=== PATIENT | female | born 1955 | race Caucasian/White ===

== ENCOUNTER → 2020-12-22 | Outpatient (CLI) | payer BC ==
--- NOTE | 2020-12-22 14:02 | REP ---
INDICATION: S/P SURGERY, SWELLING/TENDERNESS, R/O DVT. COMPARISON: None TECHNIQUE: Multiple ultrasonographic images of the deep venous structures of the right thigh were obtained from the level of the common femoral vein to the popliteal vein in the longitudinal and transverse scan planes along with Doppler interrogation and color flow Doppler imaging. Exam into the proximal calf also performed. Comparison exam of the right common femoral vein also made. FINDINGS: There is no abnormal echogenic material seen within any of the visualized deep venous structures that would suggest acute thrombosis. Coaptation is unremarkable throughout. Doppler interrogation shows an expected response to respiratory variability and augmentation. The color flow Doppler images show what appears to be a normal vascular pattern throughout. IMPRESSION: There is no ultrasonographic evidence of deep venous thrombosis involving any of the visualized deep venous structures of the right thigh as described above. The peroneal vein in its mid to distal course is not seen due to edema. The left posterior tibial vein is compressible throughout the calf. Accredited by the [employer] in Vascular Peripheral Ultrasound. <Electronically signed by Simón Felix > 12/22/20 2751
== END ==
LOC: M RAD 12:39
PROVIDERS: ATTEND Orthopaedic Surgery
DX: M79.669 Pain in unspecified lower leg (principal)

== ENCOUNTER → 2022-06-21 | Outpatient (CLI) | payer BC ==
[2022-06-21 13:10] LABS: ALBUMIN 3.7 G/DL (3.2-5.2); ALKALINE PHOSPHATASE 84 U/L (46-116); ALT/SGPT 34 U/L (7.0-40); AST/SGOT 26 U/L (<34); BILIRUBIN,TOTAL 0.5 MG/DL (0.3-1.2); BLOOD UREA NITROGEN 20 MG/DL (9-23); CALCIUM LEVEL 9.2 MG/DL (8.3-10.6); CARBON DIOXIDE LEVEL 31 MMOL/L (20-31); CHLORIDE LEVEL 104 MMOL/L (98-107); CHOLESTEROL LEVEL 182 MG/DL (<200); CREATININE FOR GFR 0.81 MG/DL (0.55-1.30); GLOMERULAR FILTRATION RATE > 60.0 (>45); GLUCOSE, FASTING 88 MG/DL (74-106); HDL CHOLESTEROL 67.2 MG/DL (>40); LDL CHOLESTEROL 95.2 MG/DL (<100); NON-HDL-C 115 MG/DL; POTASSIUM SERUM 4.4 MMOL/L (3.5-5.1); SODIUM LEVEL 140 MMOL/L (136-145); TOTAL PROTEIN 6.6 G/DL (5.7-8.2); TRIGLYCERIDES LEVEL 98 MG/DL (<150)
[2022-06-21 13:21] LABS: BASO % 0.5 % (0.0-1.0); EOS # 0.1 10^3/uL (0.0-0.5); EOS % 1.7 % (0.0-3.0); HEMATOCRIT 46.2 % (36.0-47.0); HEMOGLOBIN 14.4 g/dl (12.0-15.5); LYMPH # 1.5 10^3/uL (1.5-5.0); LYMPH % 23.1 % (24.0-44.0); MEAN CORPUSCULAR HEMOGLOBIN 28.2 pg (27.0-33.0); MEAN CORPUSCULAR HGB CONC 31.2 g/dl (32.0-36.5); MEAN CORPUSCULAR VOLUME 90.4 fl (80.0-96.0); MONO # 0.5 10^3/uL (0.0-0.8); NEUTROPHILS # 4.4 10^3/uL (1.5-8.5); NEUTROPHILS % 66.5 % (36.0-66.0); PLATELET COUNT, AUTOMATED 213 10^3/uL (150-450); RED BLOOD COUNT 5.11 10^6/uL (4.00-5.40); WHITE BLOOD COUNT 6.6 10^3/uL (4.0-10.0)
== END ==
LOC: M WUC 09:05
PROVIDERS: ATTEND Family Medicine
DX: I10 Essential (primary) hypertension (principal); R53.83 Other fatigue; E55.9 Vitamin D deficiency, unspecified

== ENCOUNTER 2022-06-23 17:19 | Emergency (ER) | payer BC ==
[~2022-06-23] VITALS: Ht 157.5 cm; Wt 77.3 kg
[2022-06-23] MEDS ORDERED: FURO20TA2 PO (17:48)
[2022-06-23] MEDS ORDERED: POTA10808 PO (17:48)
[2022-06-23] MEDS ORDERED: OMEP10CASR PO (17:48)
[2022-06-23] MEDS ORDERED: PERCOCET 5MG/325MG TAB PO ONE (23:25)
[2022-06-23] MEDS ORDERED: ROLLMIS8 XX (23:25)
[2022-06-24 00:05] VITALS: BP 130/70
== END 2022-06-24 00:09 | disposition home or self-care (01) ==
LOC: M ED 17:19
DX: M23.92 Unspecified internal derangement of left knee (principal); I10 Essential (primary) hypertension; F17.200 Nicotine dependence, unspecified, uncomplicated; Z79.899 Other long term (current) drug therapy

== ENCOUNTER → 2022-07-03 | Outpatient (CLI) | payer BC ==
[~2022-07-03] MED LIST: FURO20TA2 PO; OMEP10CASR PO; POTA10808 PO; ROLLMIS8 XX
== END ==
LOC: M SOG 16:00
PROVIDERS: ATTEND Orthopaedic Surgery Hand Surgery
DX: M25.562 Pain in left knee (principal)

== ENCOUNTER → 2025-02-04 | Outpatient (CLI) | payer OTHER ==
[~2025-02-04] MED LIST changes: +PERC5TAB12 PO; -POTA10808 PO; +POTA10809 PO
== END ==
LOC: M WHC 12:10
PROVIDERS: ATTEND Family Medicine
DX: Z13.820 Encounter for screening for osteoporosis (principal); M85.89 Other specified disorders of bone density and structure, multiple sites